=== PATIENT | female | born 2000 | race Caucasian/White ===

== ENCOUNTER 2024-12-12 12:50 | Emergency (ER) | payer BC, SELFPAY ==
[2024-12-12 12:53] VITALS: BP 177/119
[2024-12-12] MEDS: DILAUDID 0.5 MG IV (14:30)
[2024-12-12] MEDS: ZOFRAN 4 MG IV (14:32)
--- NOTE | 2024-12-12 14:43 | ED.MUSCINJ ---
HPI-Injury
General
Chief Complaint: Musculo-Skeletal Complaint
Source: patient
Exam Limitations: none
Time Seen by Provider: 12/12/24 13:44
Nursing documentation reviewed up to this point in time: agreed with
History of Present Illness-Injury
Is this injury a work related problem?: No
Is pt an associate of [facility]/[place]?: No
Initial Injury comments:
Patient states she tripped and foot got caught under her. COmplains of pain to right ankle. Injury occurred last PM. Unable to bear weight.
Past History
Past History
ED Past Medical History: Psychiatric (depression)
ED Past Surgical History: Tonsilectomy
Social History
Tobacco: Non-smoker
Alcohol: Occasional
Review of Systems
Review of Systems
Allergies reviewed?: Yes
All Other Systems: ROS reviewed and negative except as documented in HPI and ROS
Constitutional: Reports no symptoms
Musculoskeletal: Reports joint pain (pain to right ankle)
Skin: Reports no symptoms
Neurological: Reports no symptoms
Psychiatric: Reports no symptoms
Musculoskeletal Injury Exam
Musculoskeletal Injury Exam
Right Ankle:
Pain with Movement?: Moderate
Tender to palpation?: Moderate
Soft tissue swelling?: Moderate
External deformity and angulation?: Mild
Joint effusion?: None
Contusion?: None
Hematoma-local bleeding into tissue?: Moderate
Strain- Sprain- Tear (Connective tissue injury)?: Moderate
Crepitus with movement?: No
Joint instability?: No
Malalignment/deformity?: No
Range of motion: Limited
Distal skin color and temperature: normal-warm & good color
Capillary Refill: normal
Normal distal neurovascular exam?: Yes
Phy Exam
General Physical Exam
General Presentation: well appearing and no apparent distress
General age: appears stated age
General Skin: warm and dry
General Habitus: normal
General Mental: alert
Musculoskeletal Exam
Musculoskeletal Exam: neuro vasc intact and other (achilles intact. No tenderness base of 5th, proximal tib/fib)
Skin Exam
Skin Exam: normal color, warm/dry and no rash
Psychiatric Exam
Psychiatric Exam: normal mood/affect
Injury Course
Orders/Labs/Results
Orders:
Orders
12/12/24 12:55
Ankle, Right 3 view CR [CR Ankle - Right Min 3 Views *] Urgent
Comment:
Reason For Exam: pain
12/12/24 14:02
HYDROmorphone [Dilaudid] 0.5 mg IV NOW STA
Ondansetron Injectable [Zofran] 4 mg IV NOW STA
12/12/24 14:41
Ankle, Right 2 view CR [CR Ankle - Right 2 Views] Urgent
Comment:
Reason For Exam: post reduction
12/12/24 15:45
Crutches-Treatment ONCE
*Radiology
Radiology exam reviewed: radiology read reviewed
*Pulse Oximetry
Patient hypoxic: no
*Critical Care Note
Total Time (30-74mins, 75-104mins- exclusive of procedures): Not Applicable
Update Note
Update Note:
Bimalleolar fx to right ankle with mortis widening. Given Dilaudid .5mg IV and fracture reduced by me. Placed in stir-up splint. Will discharge home, nonweight bearing RLE. Dr. Berman notified of injury. Patient will call office Sunday AM for
appointment time.
ED Attending Note
-
Portions of this chart may have been created with voice recognition software.� Occasional wrong word or��sound alike� substitutions may have occurred due to the inherent limitations of voice recognition software.
Discharge Plan
Departure
Patient Disposition: Home (Routine Discharge)
Date of Disposition: 12/12/24
Time of Disposition: 15:46
Patient with high blood pressure during this ER visit?: No
Condition: Good
Covid-19: Not Applicable
Discharge Problem:
Ankle fracture
Instructions: How to Use Crutches, Ankle Fracture (DC), Ibuprofen, Splint Care
Referrals:
Kye Berman MD [Active] - Call in 1-3 days for appt
Gentry-Peace Luna PA [Family Provider] -
Stand Alone Forms: Return to Work
Activity Restrictions/Additional Instructions:
NO DRIVING. NO WEIGHT BEARING ON YOUR RIGHT LEG. Keep leg elevated. Ice 15-20 minutes at a time, 4-5 times daily
Interventions
Interventions:
*Risk Screen - Suicide Last Done: 12/12/24 14:30
*General Assessment Last Done: 12/12/24 14:30
*Neglect/Abuse Screening Last Done: 12/12/24 14:30
*ED COVID-19 Vaccine History Last Done: 12/12/24 14:30
ED-Musculoskeletal Assessment Last Done: 12/12/24 15:47
Discharge Date and Time
Print Language: ESTONIAN
== END 2024-12-12 17:08 | disposition home or self-care (01) ==
LOC: EMR 12:50
PROVIDERS: EMERGENCY PHYSICIAN Emergency Medicine; FAMILY PHYSICIAN Physician Assistant
DX: S82.831A Other fracture of upper and lower end of right fibula, initial encounter for closed fracture (principal); X58.XXXA Exposure to other specified factors, initial encounter
CPT/HCPCS: 99283; 29515; 96374; 96375; 73600; 73610